=== PATIENT | female | born 1970 | race Caucasian/White ===

== ENCOUNTER 2020-01-01 13:46 | Outpatient (CLI) | payer BC, SELFPAY ==
--- NOTE | ~2020-01-01 | MM_ITS ---
EXAMINATION: MM screening [facility] BI w billy HISTORY: Screening mammogram TECHNIQUE: Craniocaudal and mediolateral oblique 3-D tomosynthesis images were obtained and synthetic 2-D images were generated. CAD analysis was submitted and interpreted. COMPARISON: 01/08/2014, 01/29/2011 bilateral digital screening mammogram examinations BREAST PARENCHYMAL COMPOSITION: There are scattered areas of fibroglandular density. FINDINGS: Stable fibroglandular asymmetry. There is no evidence of suspicious mass, calcification, or architectural distortion to suggest malignancy in either breast. There has been no suspicious interv al change. IMPRESSION: 1. No mammographic evidence of malignancy. 2. Recommend routine screening mammography in one year. BI-RADS Category 2: Benign finding(s). Reviewed, dictated and finalized at location A.
== END 2020-01-01 13:47 | disposition home or self-care (01) ==
DX: Z12.31 Encounter for screening mammogram for malignant neoplasm of breast (principal)
CPT/HCPCS: 77063; 77067

== ENCOUNTER 2021-06-02 11:26 | Outpatient (CLI) | payer BC, SELFPAY ==
[2021-06-02 12:12] LABS: Basophils Absolute Auto 0.1 K/mm3 (0.0-0.1); Basophils Percent Auto 1.3 % (0.2-1.2); Eosinophils Absolute Auto 0.1 K/mm3 (0-0.3); Eosinophils Percent Auto 2.5 % (0-4.4); Hematocrit 42.6 % (37.0-47.0); Hemoglobin 14.6 g/dL (12.0-15.0); Immature Granulocyte Absolute 0.02 K/mm3 (0.00-0.031); Immature Granulocyte Percent A 0.4 % (0-0.5); Lymphocytes Absolute Auto 1.71 K/mm3 (0.9-3.2); Lymphocytes Percent Auto 32.9 % (18.3-44.2); Mean Corpuscular HGB Conc 34.3 g/dl (32-36); Mean Corpuscular Hemoglobin 31.7 pg (26-34); Mean Corpuscular Volume 92.6 fl (80-100); Mean Platelet Volume 9.3 fl (7.4-10.4); Monocytes Absolute Auto 0.4 K/mm3 (0.1-0.6); Monocytes Percent Auto 7.7 % (2.6-8.5); Neutrophils Absolute Auto 2.9 K/mm3 (1.3-6.7); Neutrophils Percent Auto 55.2 % (45.5-73.1); Platelet Count Result 194 k/mm3 (150-375); Red Cell Distribution Width 12.6 % (11.5-14.5); White Blood Count 5.2 K/mm3 (4.5-10.0)
[2021-06-02 12:22] LABS: Hemoglobin A1C 4.9 % (<5.7)
[2021-06-02 12:28] LABS: Alanine Aminotransferase 23 U/L (4-35); Alkaline Phosphatase 58 U/L (38-126); Anion Gap 5 mmol/L (8-16); Aspartate Amino Transferase 26 U/L (14-36); Bilirubin,Total 0.9 mg/dL (0.2-1.3); Blood Urea Nitrogen 9 mg/dL (7-17); Calcium 8.3 mg/dL (8.4-10.2); Carbon Dioxide 28 mmol/L (22-30); Chloride 102 mmol/L (98-107); Cholesterol 224 mg/dL (0-200); Estimated Glomerular Filt Rate > 60; Glucose 87 mg/dL (65-110); HDL Direct 60 mg/dL; Potassium 4.1 mmol/L (3.4-5.0); Sodium 135 mmol/L (137-145); Triglycerides 98 mg/dL (<150)
[2021-06-02 12:39] LABS: LDL Cholesterol Direct 128 mg/dL
[2021-06-02 12:45] LABS: Vitamin D 25 Hydroxy 58.2 ng/mL
[2021-06-02 13:32] LABS: Folic Acid > 20.0 ng/mL (2.76->20)
[2021-06-05 07:36] LABS: FSH 4.9 mIU/mL (***)
== END 2021-06-02 11:27 | disposition home or self-care (01) ==
PROVIDERS: PCP Nurse Practitioner Family
DX: Z13.0 Encounter for screening for diseases of the blood and blood-forming organs and certain disorders involving the immune mechanism (principal); Z13.1 Encounter for screening for diabetes mellitus; Z13.29 Encounter for screening for other suspected endocrine disorder; Z13.220 Encounter for screening for lipoid disorders; E55.9 Vitamin D deficiency, unspecified; Z13.9 Encounter for screening, unspecified
CPT/HCPCS: 36415; 80053; 80061; 82306; 82607; 82746; 83001; 83036; 84443; 85025

== ENCOUNTER 2021-11-08 02:01 | Day surgery (SDC) | payer BC, SELFPAY ==
[2021-10-28 09:58] VITALS: BMI 38.5
[2021-11-08 12:22] VITALS: BP 118/86; PULSE 82; RESP 18; TEMP 36; O2SAT 97
[2021-11-08] MEDS: LACTATED RINGERS 1,000 ML 150 ML IV CONT (12:32)
--- NOTE | 2021-11-08 12:46 | WPDGICN ---
Assessment and Plan Assessment and plan (1) Encounter for screening colonoscopy: Code(s): Z12.11 - Encounter for screening for malignant neoplasm of colon Status: Acute Assessment and Plan: Patient presents for screening colonoscopy because of age. Because of her urgent bowel movements would recommend fiber supplementation for what appears to be irritable bowel syndrome. Further recommendations will be given after endoscopy. GI Consult Note Consult date/time: 11/08/21 12:46 HPI: Karis Logan is a 51 year old female Presents for screening colonoscopy. Patient's current weight appetite and bowel movements are normal. She denies abdominal pain. She has had no bleeding. Patient does report a history of a gastric sleeve some years ago. She states over last 1 year has had loose stools with significant urgency. She denies any abdominal pain or bleeding. Family history is noncontributory. Patient presents today for neoplasia screening. Review of Systems Review of Systems: All systems reviewed & are unremarkable except as noted in HPI and below PMFSH Past Medical History Medical History (Updated 11/08/21 @ 12:48 by Leodan Carrillo MD) Anxiety Asthma Depression GERD (gastroesophageal reflux disease) Surgical History Surgical History (Updated 11/05/21 @ 15:48 by Mauricio Uribe DO) History of cholecystectomy History of gastric bypass 2013 Social History Social History Smoking status: Never smoker Alcohol intake: never Substance use: never Substance use type: does not use Living arrangements: with family Spiritual care concerns: No Meds Home Medications and Allergies Home Medications Medication Instructions Recorded Confirmed Type Adults Multivitamin 1 tab-cap PO DAILY 10/28/21 11/08/21 History Fish Oil 1 tab-cap PO DAILY 10/28/21 11/08/21 History bupropion HCl 150 mg PO BID 10/28/21 11/08/21 History escitalopram oxalate 10 mg PO DAILY 10/28/21 11/08/21 History omeprazole 20 mg PO BID 10/28/21 11/08/21 History oxybutynin chloride 10 mg PO DAILY 10/28/21 11/08/21 History Allergies Allergy/AdvReac Type Severity Reaction Status Date / Time No Known Allergies Allergy Unknown Verified 11/08/21 12:21 Vital Signs Vital Signs - 24 hr 11/08/21 12:22 Temperature 96.8 F L Pulse Rate 82 Respiratory Rate 18 Blood Pressure 118/86 Pulse Oximetry 97 Exam Narrative: Physical exam reveals patient to be alert. Vital signs stable. HEENT exam is unremarkable. Patient is anicteric. Lungs are clear to auscultation and percussion. Heart is without murmur or extra sounds. Abdominal exam bowel sounds are present soft nontender with no organomegaly. Digital external rectal exam is normal.
--- NOTE | 2021-11-08 12:54 | SUR.PREOP ---
Dr. Edmonds waived bedside urine test.
--- NOTE | 2021-11-08 12:58 | WPDANESEPPF ---
Anes - Initial Pre Proc Eval Procedure: Operation Date: 11/08/21 13:30 Proposed Procedures p Screening Colonoscopy - Leodan Carrillo MD Date/Time: 11/08/21 12:58 Surgeon: Leodan Carrillo MD Pre Op Diagnosis: neoplasm screening Patient Data Age: 51 Gender: F Height: 1.65 m Weight: 104 kg Last Vital Signs Temp 96.8 F L 11/08/21 12:22 Pulse 82 11/08/21 12:22 Resp 18 11/08/21 12:22 BP 118/86 11/08/21 12:22 Pulse Ox 97 11/08/21 12:22 Allergies Allergy/AdvReac Type Severity Reaction Status Date / Time No Known Allergies Allergy Unknown Verified 11/08/21 12:21 Home Medications Medication Instructions Recorded Confirmed Type Adults Multivitamin 1 tab-cap PO DAILY 10/28/21 11/08/21 History Fish Oil 1 tab-cap PO DAILY 10/28/21 11/08/21 History bupropion HCl 150 mg PO BID 10/28/21 11/08/21 History escitalopram oxalate 10 mg PO DAILY 10/28/21 11/08/21 History omeprazole 20 mg PO BID 10/28/21 11/08/21 History oxybutynin chloride 10 mg PO DAILY 10/28/21 11/08/21 History Patient hx anesthesia problems: none Family hx anesthesia problems: none Results Review: All pre-operative results and documents have been reviewed as part of the pre-operative evaluation. [facility] Past Medical History Medical History (Updated 11/08/21 @ 12:48 by Leodan Carrillo MD) Anxiety Asthma Depression GERD (gastroesophageal reflux disease) Surgical History Surgical History (Updated 11/05/21 @ 15:48 by Mauricio Uribe DO) History of cholecystectomy History of gastric bypass 2014 Social History Social History Smoking status: Never smoker Alcohol intake: never Substance use: never Substance use type: does not use Living arrangements: with family Spiritual care concerns: No Anes - Eval Final PreProcedure Day of Procedure 11/08/21 12:58 Patient weight: obese Heart: regular rate and rhythm Lungs: clear to auscultation Airway: Mallampati scale class II Neurological: alert and oriented Last oral intake: >/= 8 hours ASA classification: III Emergent: no Anesthetic plan: proceed Anesthesia type and monitoring: general GIVS and standard monitoring Results Review: All pre-operative results and documents have been reviewed as part of the pre-operative evaluation. Informed Consent: The patient's anesthetic plan and its attendant risks and benefits were discussed with the patient/family/POA. Questions were solicited and answers provided to the satisfaction of the patient/family/POA.
[2021-11-08 13:11] VITALS: BP 92/59; PULSE 68; RESP 23; O2SAT 92
[2021-11-08 13:21] VITALS: BP 98/60; PULSE 65; RESP 18; O2SAT 92
[2021-11-08 13:31] VITALS: BP 107/71; PULSE 55; RESP 13; O2SAT 95
== END 2021-11-08 13:45 | disposition home or self-care (01) ==
PROVIDERS: PCP Nurse Practitioner Family; Visit Provider Internal Medicine Gastroenterology
PROC: 0DJD8ZZ Inspection of Lower Intestinal Tract, Via Natural or Artificial Opening Endoscopic (ICD-10-PCS; CPT 45378; principal; 2021-11-08 13:30)
DX: Z12.11 Encounter for screening for malignant neoplasm of colon (principal); K57.30 Diverticulosis of large intestine without perforation or abscess without bleeding; K64.8 Other hemorrhoids; K21.9 Gastro-esophageal reflux disease without esophagitis; J45.909 Unspecified asthma, uncomplicated; F32.A Depression, unspecified; F41.9 Anxiety disorder, unspecified; Z98.84 Bariatric surgery status
CPT/HCPCS: 45380; 88305; J2405; J2704; J7120

== ENCOUNTER 2021-12-07 17:54 | Emergency (ER) | payer BC, SELFPAY ==
--- NOTE | ~2021-12-07 | XR_ITS ---
EXAMINATION:[id number] DATE: 12/07/2021 18:19 INDICATION: Right-sided neck pain TECHNIQUE: AP, lateral, and odontoid views of the cervical spine are provided. COMPARISON: None FINDINGS: Alignment is normal. The odontoid is intact. No fracture is identified. The vertebral body heights are normal. There is moderate loss of intervertebral disc space height at C5-6 and mild loss of disc space height at C4-5 and C6-7. Small degenerative osteophytes project from the anterior endpl ates of multiple vertebral bodies. There is moderate facet osteoarthritis of the cervical spine. Prev ertebral soft tissues are normal. IMPRESSION: 1. Mild to moderate cervical spondylosis without acute findings. Reviewed, dictated and finalized at location F.
[2021-12-07 17:59] VITALS: BP 110/67; PULSE 61; RESP 12; TEMP 36; O2SAT 99
--- NOTE | 2021-12-07 18:01 | ED.BACK ---
HPI - Back Pain/Injury General Chief Complaint: Neck Pain/Injury Stated Complaint: neck pain Time Seen by Provider: 12/07/21 18:02 Source: patient Mode of arrival: ambulatory Limitations: no limitations History of Present Illness HPI Narrative: 51-year-old female presented for complaint of right posterior neck pain for 5 days. States she woke with the pain. Described as tight, constant, worse with movement of her head. She denies known injury, denies radiating pain to arm, numbness, tingling or weakness of the right arm. Taking Tylenol and ibuprofen every 4 hours. Related Data Home Medications Medication Instructions Recorded Confirmed Adults Multivitamin 1 tab-cap PO DAILY 10/28/21 11/08/21 Fish Oil 1 tab-cap PO DAILY 10/28/21 11/08/21 bupropion HCl 150 mg tablet,12 hr 150 mg PO BID 10/28/21 11/08/21 sustained-release escitalopram oxalate 10 mg tablet 10 mg PO DAILY 10/28/21 11/08/21 omeprazole 20 mg capsule,delayed 20 mg PO BID 10/28/21 11/08/21 release oxybutynin chloride 10 mg 10 mg PO DAILY 10/28/21 11/08/21 tablet,extended release 24 hr Allergies Allergy/AdvReac Type Severity Reaction Status Date / Time No Known Allergies Allergy Unknown Verified 11/08/21 12:21 Review of Systems Review of Systems: CONSTITUTIONAL: Denies body aches, fever, chills EYES: Denies visual changes CARDIOVASCULAR: Denies chest pain, palpitations, or edema. RESPIRATORY: Denies cough or dyspnea. SKIN: Denies rash, itching, or wounds. MUSCULOSKELETAL: reports neck pain NEUROLOGIC: Denies numbness, tingling, or weakness. All systems reviewed & are unremarkable except as noted in HPI and below PMFSH Past Medical History Medical History Anxiety Asthma Depression GERD (gastroesophageal reflux disease) Surgical History Surgical History History of cholecystectomy History of gastric bypass 2013 Social History Social History Smoking status: Never smoker Alcohol intake: never Substance use: never Substance use type: does not use Spiritual care concerns: No Comments At time of signature, I have reviewed and agree with nursing past medical, surgical, social and family history unless otherwise noted. Please see nursing chart for further information. There is no relevant family history pertinent to the presenting complaint Exam Narrative: GENERAL: Appears in pain, nontoxic HEAD: Normocephalic, atraumatic. EYES: EOMI, conjunctivae clear NECK: Supple. Nontender with palpation to vertebrae or paraspinal area; decreased ROM when turning head laterally CHEST: Speaks in full sentences. No respiratory distress. HEART: Regular rate and rhythm. Normal and equal peripheral pulses. EXTREMITIES: BUEs normal strength and sensation. skin warm, dry, pink. Capillary refill less than 3 seconds. SKIN: Warm, dry, no rash. NEURO: Alert and oriented x3. PSYCH: Normal mood and affect Course Course Emergency Course: Patient is aware of diagnosis, understands and agrees to treatment plan. Anticipatory guidance given. Patient agrees to follow-up as directed and is aware of reasons to seek care at the emergency department. Portions of this record may have been created with voice recognition software Level of Care: Express Care Visit Vital Signs Vital signs: Vital Signs Temperature 96.8 F L 12/07/21 17:59 Pulse Rate 61 12/07/21 17:59 Respiratory Rate 12 12/07/21 17:59 Blood Pressure 110/67 12/07/21 17:59 Pulse Oximetry 99 12/07/21 17:59 Oxygen Delivery Room Air 12/07/21 17:59 Temperature 96.8 F L 12/07/21 17:59 Pulse Rate 61 12/07/21 17:59 Respiratory Rate 12 12/07/21 17:59 Blood Pressure 110/67 12/07/21 17:59 Pulse Oximetry 99 12/07/21 17:59 Oxygen Delivery Room Air 12/07/21 17:59 Reviewed MDM - Back
== END 2021-12-07 18:32 | disposition home or self-care (01) ==
PROVIDERS: Emergency Provider Nurse Practitioner Family; PCP Nurse Practitioner Family
DX: M54.2 Cervicalgia (principal); J45.909 Unspecified asthma, uncomplicated; K21.9 Gastro-esophageal reflux disease without esophagitis; F41.9 Anxiety disorder, unspecified; F32.A Depression, unspecified; Z98.84 Bariatric surgery status
CPT/HCPCS: 72040; 99213; G0463